=== PATIENT | female | born 1960 ===

== ENCOUNTER 2022-10-07 09:03 | Outpatient (CLI) | payer OTHER | END 2022-10-07 09:10 | disposition home or self-care (01) | LOC: SONOGRAMA 09:03 | PROVIDERS: ATTEND Pathology Anatomic Pathology & Clinical Pathology | DX: D44.0 Neoplasm of uncertain behavior of thyroid gland (principal); D34 Benign neoplasm of thyroid gland; E04.9 Nontoxic goiter, unspecified; E07.9 Disorder of thyroid, unspecified ==